=== PATIENT | male | born 1990 | race Caucasian/White ===

== ENCOUNTER 2022-01-05 11:09 | Emergency (ER) | payer SELFPAY ==
[~2022-01-05] VITALS: Ht 180.3 cm; Wt 82.0 kg
--- NOTE | 2022-01-05 11:23 | ED GU-Male ---
General Chief Complaint: - Reproductive Stated Complaint: PAIN/SWELLING IN TESTICLES History of Present Illness Date Seen by Provider: Jan 05, 2022 Time Seen by Provider: 11:23 Initial Comments Patient presents with significant pain and swelling in his testicles. Patient reports he awoke with it and is worsened throughout the morning. Patient states now making him nauseous and it goes up both sides of his groin. He cannot tell now is on the right or left.. Patient denies any trauma. (BETO TIMMONS DO) Allergies and Home Medications Allergies Coded Allergies: No Known Allergies (Verified Allergy, Unknown, 01/05/22) Patient Home Medication List Home Medication List Reviewed: Yes (BETO TIMMONS DO) Doxycycline Hyclate (Doxycycline Hyclate) 100 Mg Tablet, 100 MG PO BID Prescribed by: LAUREN ROB on 01/05/22 1418 Ketorolac Tromethamine (Ketorolac Tromethamine) 10 Mg Tablet, 10 MG PO Q6H PRN for PAIN-BREAKTHROUGH Prescribed by: LAUREN ROB on 01/05/22 1418 Ondansetron (Ondansetron Odt) 4 Mg Tab.rapdis, 4 MG PO Q6H PRN for NAUSEA/VOMITING Prescribed by: LAUREN ORB on 01/05/22 1418 Review of Systems Review of Systems Constitutional: see HPI; No chills, No fever EENTM: no symptoms reported Respiratory: no symptoms reported Cardiovascular: no symptoms reported Gastrointestinal: see HPI Genitourinary: see HPI Musculoskeletal: no symptoms reported Skin: no symptoms reported Psychiatric/Neurological: No Symptoms Reported Endocrine: No Symptoms Reported Hematologic/Lymphatic: No Symptoms Reported (BETO TIMMONS DO) Past Udorepp-Wpwvua-Ppbwsf Hx Patient Social History Tobacco Use?: No Smoking Status: Never a Smoker Smokeless Tobacco Frequency: Never a User Use of E-Cig and/or Vaping dev: No Use of E-Cig and/or Vaping Fernandez: Never a User Substance use?: No Alcohol Use?: No Pt feels they are or have been: No (BETO TIMMONS DO) Physical Exam Vital Signs Vital Signs - First Documented 01/05/22 01/05/22 11:15 11:35 Temp 36.9 Pulse 66 Resp 17 B/P (MAP) 117/76 (90) Pulse Ox 100 O2 Delivery Room Air (LAUREN ROB) Vital Signs Capillary Refill : (TIMMONS,BETO L DO) Height, Weight, BMI Height: '" Weight: lbs. oz. kg; BMI Method: General Appearance: moderate distress Cardiovascular: normal peripheral pulses, regular rate, rhythm Respiratory: lungs clear, normal breath sounds Male: testicular tenderness, other (Mild high riding right testicle with some m ild swelling) Extremities: normal range of motion Neurologic/Psychiatric: alert, normal mood/affect, oriented x 3 Skin: normal color, warm/dry (TIMMONS,BETO L DO) Progress/Results/Core Measures Suspected Sepsis SIRS Temperature: Pulse: Respiratory Rate: Blood Pressure / Mean: (TIMMONS,BETO L DO) Results/Orders Lab Results Laboratory Tests Test 01/05/22 12:40 Range/Units Urine Color ORANGE Urine Clarity SL CLOUDY Urine pH 6.0 5-9 Urine Specific [place] >=1.030 1.016-1.022 Urine Protein TRACE H NEGATIVE Urine Glucose (UA) NEGATIVE NEGATIVE Urine Ketones 2+ H NEGATIVE Urine Nitrite NEGATIVE NEGATIVE Urine Bilirubin 1+ H NEGATIVE Urine Urobilinogen 0.2 < = 1.0 MG/DL Urine Leukocyte Esterase NEGATIVE NEGATIVE Urine RBC (Auto) NEGATIVE NEGATIVE Urine RBC NONE /HPF Urine WBC NONE /HPF Urine Squamous Epithelial Cells NONE /HPF Urine Crystals PRESENT H /LPF Urine Amorphous Sediment LARGE JUAN MIGUEL URATES H /LPF Urine Bacteria NEGATIVE /HPF Urine Casts NONE /LPF Urine Mucus SMALL H /LPF Urine Culture Indicated NO (LAUREN ROB) My Orders Orders - LAUREN ROB Scrotum (Testicle) [id number] (01/05/22 12:43) Ua Culture If Indicated (01/05/22 13:24) Azithromycin Tablet (Zithromax Tablet) (01/05/22 14:00) Ceftriaxone (Rocephin) (01/05/22 14:00) Lidocaine 1% Inj 20 Ml (Xylocaine 1% Inj (01/05/22 14:00) Neis Cristofer Dna Urine Test (01/05/22 13:52) Chlamydia Trachomatis Urine (01/05/22 13:52) (LAUREN ROB) Medications Given in ED Current Medications Medications Dose Ordered Sig/Edilia Route Start Time Stop Time Status Last Admin Dose Admin Azithromycin 1,000 mg ONCE ONCE PO 01/05/22 14:00 01/05/22 14:01 DC 01/05/22 14:41 1,000 MG Ceftriaxone Sodium 1,000 mg ONCE ONCE IM 01/05/22 14:00 01/05/22 14:01 DC 01/05/22 14:41 1,000 MG Lidocaine HCl 2.1 ml ONCE ONCE INJ 01/05/22 14:00 01/05/22 14:01 DC 01/05/22 14:41 2.1 ML (LAUREN ROB) Vital Signs/I&O 01/05/22 01/05/22 01/05/22 01/05/22 11:15 11:35 12:34 15:00 Temp 36.9 Pulse 66 71 64 72 Resp 17 17 20 20 B/P (MAP) 117/76 (90) 124/73 (90) 130/72 (91) 124/76 Pulse Ox 100 99 99 O2 Delivery Room Air Room Air Room Air Room Air (LAUREN ROB) Vital Signs/I&O Capillary Refill : (BETO TIMMONS DO) Progress Note : Time: 11:32 Progress Note Patient symptoms concerning for testicular torsion. Patient needs an ultrasound which is unavailable at [facility] for [place]. You will be transferred to [facility] in [place] for ultrasound. Patient request to go by private vehicle. I will provide him Toradol for pain since he wants to drive himself. I discussed with him the need to go directly to the ER with nothing to eat or drink in route. Discussed with Dr. Rob who graciously accepted patient. Patient was stable upon transfer. (BETO TIMMONS DO) Progress Note #1: Time: 12:45 Progress Note Patient arrives by private conveyance from [facility] and ER to ER transfer by POV with chief complaint that at 330 this morning he was awoken with severe pain in his testicles left worse than right. Both feel like they are sending. He states they both hurt. Was a 10 out of 10 then he received some Toradol the time he got here he is is is now about 4 out of 10. Ultrasound was called in. Progress Note #2: Time: 13:40 Progress Note Patient to ultrasound. Progress Note #3: Time: 14:11 Progress Note Patient is feeling significantly better. Ready to go home. He is never had STDs and is in a monogamous relationship over the age of 30 so likely a typical anaerobic or gram negative urinary tract pathogen is suspected. We will give him a gram of Rocephin, a gram of azithromycin and put him on doxycycline for 10 days. Follow-up with urology as necessary (LAUREN ROB) Diagnostic Imaging Diagonstic Imaging: Ultrasound Plain Films/CT/US/NM/MRI: other (Scrotum) Comments [facility], [place] NAME: JOY VELEZ [facility] REC#: [id number] PT STATUS: REG ER : 1990 PHYSICIAN: LAUREN ROB MD ADMIT DATE: 01/05/22/ER Signed Date of Exam:01/05/22 US SCROTUM (Testicle) [id number] PROCEDURE: US Scrotum. TECHNIQUE: Multiple real-time grayscale images were obtained over the scrotum in various projections bilaterally. INDICATION: Scrotal pain. Testicular parenchyma appeared normal bilaterally. No evidence for testicular mass. Color Doppler blood flow to both testicles appeared normal. There is no hydrocele and there is no varicocele. No hernia identified. No convincing evidence for epididymal pathology. IMPRESSION: No findings of torsion or orchitis. No convincing evidence for epididymitis. No hernia, mass, hydrocele or varicocele. Dictated by: Dictated on workstation # [id number] Dict: 01/05/22 1401 Trans: 01/05/22 1457 [facility] [id number] Interpreted by: CARL PRITCHETT Electronically signed by: CARL PRITCHETT 01/05/22 1457 Reviewed: Reviewed by Me (LAUREN ROB) Departure Impression Primary Impression: Epididymitis, bilateral Disposition: 01 HOME, SELF-CARE Condition: Stable Departure-Patient Inst. Decision time for Depature: 14:12 (LAUREN ROB) Referrals: NO,LOCAL PHYSICIAN (PCP) Primary Care Physician BEATRIZ SERRANO MD Patient Instructions: Urinary Tract Infection, Adult (DC) Add. Discharge Instructions: You have an infection of the epididymis which lies just above the testes. Most of the time these are caused by common bacteria that cause urinary tract infections. We will cover you with doxycycline 1 capsule twice a day for the next 10 days in addition to the antibiotics we gave you today. If the culture comes back showing that we need to change antibiotics then we will call you and send a new prescription into the pharmacy. You can use Tylenol 1000 mg every 8 hours as necessary for pain. You can use heat for pain. Ketorolac 1 tablet 3 times a day for the next 3 days as necessary for breakthrough pain. Do not mix with ibuprofen naproxen Aleve or aspirin as these are the same family and you will not derive any additional benefit from mixing these medications. Ondansetron 1 tablet under the tongue every 6 hours as necessary for nausea or vomiting. Drink lots of fluids. Return to the ER for high fever, intractable nausea or vomiting, intractable pain. For help managing your symptoms or if your symptoms are not improving in 3 to [address] Serrano, urologist and request a follow-up appointment. All discharge instructions reviewed with patient and/or family. Voiced understanding. Scripts Ketorolac Tromethamine (Ketorolac Tromethamine) 10 Mg Tablet 10 MG PO Q6H PRN for PAIN-BREAKTHROUGH for 3 Days, #12 TAB 0 Refills Maximum dose 40 mg in 24 hours. Prov: LAUREN ROB 01/05/22 Ondansetron (Ondansetron Odt) 4 Mg Tab.rapdis 4 MG PO Q6H PRN for NAUSEA/VOMITING, #8 TAB 0 Refills Prov: LAUREN ROB 01/05/22 Doxycycline Hyclate (Doxycycline Hyclate) 100 Mg Tablet 100 MG PO BID for 10 Days, #20 TAB 0 Refills Prov: LAUREN ROB 01/05/22 Copy Copies To 1: BEATRIZ SERRANO MD, TREVOR L DO Jan 05, 2022 11:23 LAUREN RBO Jan 05, 2022 11:36
[2022-01-05] MEDS ORDERED: KETOROLAC 30 MG/ML VIAL IM STA (11:26)
[2022-01-05 13:29] LABS: CLARITY,URINE SL CLOUDY; COLOR,URINE ORANGE; GLUCOSE, URINE (UA) NEGATIVE (NEGATIVE); KETONES,URINE 2+ (NEGATIVE); LEUKOCYTE ESTERASE ,URINE NEGATIVE (NEGATIVE); NITRITE,URINE NEGATIVE (NEGATIVE); PROTEIN,URINE TRACE (NEGATIVE)
[2022-01-05 13:37] LABS: AMORPHOUS SEDIMENT,UR LARGE AMOR URATES /LPF; BACTERIA,URINE NEGATIVE /HPF
[2022-01-05 13:38] LABS: BILIRUBIN,URINE 1+ (NEGATIVE)
[2022-01-05] MEDS ORDERED: LIDOCAINE 1% INJ 20 ML VIAL INJ ONE (14:00)
[2022-01-05] MEDS ORDERED: AZITHROMYCIN 250 MG TAB (ZITHROMAX) PO ONE (14:00)
[2022-01-05] MEDS ORDERED: cefTRIAXone 1,000 MG VIAL IM ONE (14:00)
[2022-01-05] MEDS ORDERED: DOXY100T2 PO (14:18)
[2022-01-05] MEDS ORDERED: ONDA4TAB11 PO (14:18)
[2022-01-05] MEDS ORDERED: KETO10TA PO (14:18)
--- NOTE | 2022-01-05 14:28 | Diagnostic Imaging Report ---
PROCEDURE: US Scrotum. TECHNIQUE: Multiple real-time grayscale images were obtained over the scrotum in various projections bilaterally. INDICATION: Scrotal pain. Testicular parenchyma appeared normal bilaterally. No evidence for testicular mass. Color Doppler blood flow to both testicles appeared normal. There is no hydrocele and there is no varicocele. No hernia identified. No convincing evidence for epididymal pathology. IMPRESSION: No findings of torsion or orchitis. No convincing evidence for epididymitis. No hernia, mass, hydrocele or varicocele. Dictated by: Dictated on workstation # [id number]
[2022-01-05 15:00] VITALS: BP 124/76
== END 2022-01-05 15:01 | disposition home or self-care (01) ==
LOC: EDUNIT# 11:09 → ER 11:11
DX: N45.1 Epididymitis (principal)
CPT/HCPCS: 36415; 76870; 81000; 87491; 87591

== ENCOUNTER → 2022-01-10 | Outpatient (CLI) | payer SELFPAY ==
[~2022-01-10] MED LIST: DOXY100T2 PO; HOLD METFORMIN - RECEIVED CONTRAST 20 ML VIAL IV SCH; IOHEXOL 350 MG/ML 100 ML (OMNIPAQUE 350) VIAL IV ONE; KETO10TA PO; NS 100 ML (IVPB) BAG IV ONE; ONDA4TAB11 PO; SUCR1TAB PO
[2022-01-10 14:18] LABS: BASOPHILS % (AUTO) 0 % (0-10); EOSINOPHILS # (AUTO) 0.1 10^3/uL (0.0-0.3); EOSINOPHILS % (AUTO) 1 % (0-10); HEMATOCRIT 46 % (40-54); HEMOGLOBIN 15.9 g/dL (13.3-17.7); LYMPHOCYTES % (AUTO) 31 % (12-44); MEAN CORPUSCULAR HEMOGLOBIN 28 pg (25-34); MEAN CORPUSCULAR HGB CONC 34 g/dL (32-36); MEAN CORPUSCULAR VOLUME 82 fL (80-99); MEAN PLATELET VOLUME 9.2 fL (9.0-12.2); MONOCYTES # (AUTO) 0.8 10^3/uL (0.0-1.0); MONOCYTES % (AUTO) 12 % (0-12); NEUTROPHILS # (AUTO) 3.5 10^3/uL (1.8-7.8); NEUTROPHILS % (AUTO) 56 % (42-75); PLATELET COUNT 289 10^3/uL (130-400); WHITE BLOOD COUNT 6.3 10^3/uL (4.3-11.0)
--- NOTE | 2022-01-10 14:48 | Diagnostic Imaging Report ---
PROCEDURE: CT abdomen and pelvis with contrast. TECHNIQUE: Multiple contiguous axial images were obtained through the abdomen and pelvis after administration of intravenous contrast. Auto Exposure Controls were utilized during the CT exam to meet ALARA standards for radiation dose reduction. All CT scans use one or more of the following dose optimizing techniques: automated exposure control, MA and/or KvP adjustment based on patient size and exam type or iterative reconstruction. INDICATION: Scrotal pain and abdominal pain, symptoms of five days' duration. COMPARISON: No priors. FINDINGS: The appendix is well visualized, air containing, nondilated, and normal. There are no radiopaque urinary tract calculi. There is no hydroureteronephrosis. The aortoiliac and mesenteric vessels are patent and nonaneurysmal. There is no small or large bowel obstruction. No bowel wall thickening. No perienteric or pericolonic edema. Liver, gallbladder, bile ducts, spleen, adrenals, and pancreas are all unremarkable. No ascites, abscess, hematoma, or fluid collection. No pneumatosis or free gas. No abdominal wall defect or hernia. No soft tissue gas. No acute bony pathology. The lung bases are clear. IMPRESSION: Unremarkable abdominopelvic CT. Dictated by: Dictated on workstation # [id number]
[2022-01-10 14:49] LABS: ALBUMIN 4.1 GM/DL (3.2-4.5); BILIRUBIN,TOTAL 0.9 MG/DL (0.1-1.0); CALCIUM 9.2 MG/DL (8.5-10.1); CREATININE SERUM 0.9 MG/DL (0.60-1.30); POTASSIUM 3.8 MMOL/L (3.6-5.0); TOTAL PROTEIN 7.4 GM/DL (6.4-8.2)
== END ==
LOC: RAD 14:00
PROVIDERS: ATTEND Physician Assistant
DX: R10.84 Generalized abdominal pain (principal); N50.819 Testicular pain, unspecified; R11.0 Nausea
CPT/HCPCS: 36415; 74177; 80053; 82150; 83690; 85025

== ENCOUNTER 2022-01-12 12:44 | Emergency (ER) | payer SELFPAY ==
[~2022-01-12] VITALS: Ht 180.3 cm; Wt 84.0 kg
[~2022-01-12 12:44] MED LIST changes: -HOLD METFORMIN - RECEIVED CONTRAST 20 ML VIAL IV SCH; -IOHEXOL 350 MG/ML 100 ML (OMNIPAQUE 350) VIAL IV ONE; -NS 100 ML (IVPB) BAG IV ONE; -SUCR1TAB PO
[2022-01-12] MEDS ORDERED: LACTATED RINGERS 1,000 ML IV ONE (13:15)
[2022-01-12 13:17] LABS: BASOPHILS % (AUTO) 0 % (0-10); EOSINOPHILS # (AUTO) 0.1 10^3/uL (0.0-0.3); EOSINOPHILS % (AUTO) 2 % (0-10); HEMATOCRIT 47 % (40-54); HEMOGLOBIN 16.6 g/dL (13.3-17.7); LYMPHOCYTES # (AUTO) 2.1 10^3/uL (1.0-4.0); LYMPHOCYTES % (AUTO) 26 % (12-44); MEAN CORPUSCULAR HEMOGLOBIN 28 pg (25-34); MEAN CORPUSCULAR HGB CONC 35 g/dL (32-36); MEAN CORPUSCULAR VOLUME 81 fL (80-99); MEAN PLATELET VOLUME 9.5 fL (9.0-12.2); MONOCYTES # (AUTO) 0.6 10^3/uL (0.0-1.0); MONOCYTES % (AUTO) 8 % (0-12); NEUTROPHILS # (AUTO) 5.2 10^3/uL (1.8-7.8); NEUTROPHILS % (AUTO) 64 % (42-75); PLATELET COUNT 288 10^3/uL (130-400); WHITE BLOOD COUNT 8.1 10^3/uL (4.3-11.0)
[2022-01-12 13:27] LABS: ALBUMIN 4.5 GM/DL (3.2-4.5)
[2022-01-12 13:28] LABS: POTASSIUM 4.1 MMOL/L (3.6-5.0)
[2022-01-12 13:29] LABS: CALCIUM 9.5 MG/DL (8.5-10.1)
[2022-01-12 13:30] LABS: TOTAL PROTEIN 7.9 GM/DL (6.4-8.2)
[2022-01-12 13:32] LABS: BILIRUBIN,TOTAL 0.9 MG/DL (0.1-1.0)
[2022-01-12 13:34] LABS: CREATININE SERUM 0.88 MG/DL (0.60-1.30)
[2022-01-12] MEDS ORDERED: FAMOTIDINE 20MG/2ML IV (PEPCID) IV STA (13:36)
[2022-01-12] MEDS ORDERED: PANTOPRAZOLE 40 MG (PROTONIX) VIAL IV ONE (13:45)
[2022-01-12] MEDS ORDERED: SUCRALFATE 1 GM (CARAFATE) TAB PO ONE (13:45)
--- NOTE | 2022-01-12 13:45 | ED Abdominal Pain ---
General Chief Complaint: Abdominal/GI Problems Stated Complaint: ABD PAIN Nursing Triage Note: PT AMB TO RM 5 W C/O UPPER MEDIAL ABD PAIN SX FRIDAY. PAIN WORSE W LYING DOWN. PT A&OX4. Source of Information: Patient Exam Limitations: No Limitations (DEB [employer] STUDENT) History of Present Illness Date Seen by Provider: Jan 12, 2022 Time Seen by Provider: 13:00 Initial Comments Mr Mmcahon is a 31 yo male that presents to ER due to epigastric abdominal pain. Was sent to ER by urgent care due to a lipase that was in the 500's. He was seen in the ER a week ago with testicular pain. He was worked up with ultrasound and was found to be negative for torsion. Since then his testicular pain has gotten progressively better but the pain in his abdomen has been getting progressively worse. States the pain really began about 4-5 days ago in the epigastric area. Pain is described as about a 5, and crampy. Pain is worse at night especially with laying down. Eating and changing postions does help with the pain a bit. He has had some baseline nausea for the past week. He was also vomiting a couple times a day, because he states that it helps with the discomfort. He also has some generalized back pain that is worse in the lateral lumbar area. Denies CVA tenderness. He has not had pain like this before. Denies any history of kidney stones or galbladder problems. He does not take any medications. Does not smoke, drink alcohol, or use drugs. He is self employed. (DEB [employer] STUDENT) Timing/Duration: 1 Week, Changing Over Time Severity/Quality: Moderate, Aching, Full Location: Epigastric Radiation: Back Modifying Factors: Improves With Eating; Worsens With Lying down Associated Symptoms: No Chest Pain, No Fever/Chills; Heartburn, Nausea/Vomiting; No Shortness of Air, No Swelling/Mass in Abdomen, No Weakness (ALFREDO TREADWELL MD) Allergies and Home Medications Allergies Coded Allergies: No Known Allergies (Verified Allergy, Unknown, 01/05/22) Patient Home Medication List Home Medication List Reviewed: Yes (ALFREDO TREADWELL MD) Doxycycline Hyclate (Doxycycline Hyclate) 100 Mg Tablet, 100 MG PO BID Prescribed by: LAUREN WELLS on 01/05/22 1418 Ketorolac Tromethamine (Ketorolac Tromethamine) 10 Mg Tablet, 10 MG PO Q6H PRN for PAIN-BREAKTHROUGH Prescribed by: LAUREN WELLS on 01/05/22 1418 Ondansetron (Ondansetron Odt) 4 Mg Tab.rapdis, 4 MG PO Q6H PRN for NAUSEA/VOMITING Prescribed by: LAUREN WELLS on 01/05/22 1418 Review of Systems Review of Systems Constitutional: No chills, No fever EENTM: No Blurred Vision Respiratory: Denies Cough, Denies Shortness of Air Cardiovascular: Denies Chest Pain, Denies Edema Gastrointestinal: Abdominal Pain (Epigastric); Denies Constipated, Denies Diarrhea; Nausea, Poor Appetite; Denies Rectal Bleeding; Vomiting Genitourinary: Denies Burning, Denies Frequency Musculoskeletal: No joint pain Skin: No rash Psychiatric/Neurological: Denies Headache (DEB [employer] STUDENT) All Other Systems Reviewed Negative Unless Noted: Yes (ALFREDO TREADWELL MD) Past Ukpriem-Wcoqyn-Jrslwx Hx Patient Social History Tobacco Use?: No Use of E-Cig and/or Vaping dev: No Substance use?: No Alcohol Use?: No (DEB [employer] STUDENT) Tobacco Use?: No Use of E-Cig and/or Vaping dev: No Substance use?: No Alcohol Use?: No (ALFREDO TREADWELL MD) Immunizations Up To Date Influenza Vaccine Up-to-Date: No; Not Current First/Initial COVID19 Vaccinat: NONE Second COVID19 Vaccination [place]: NONE Third COVID19 Vaccination Date: NONE COVID19 Vaccine Energy Conservation Specialist: NONE (DEB [employer] STUDENT) Past Medical History Surgeries: Yes Orthopedic, Tonsillectomy (ALFREDO TREADWELL MD) Family Medical History Reviewed Nursing Family Hx (ALFREDO TREADWELL MD) GI Disease (ALFREDO TREADWELL MD) Physical Exam Vital Signs Vital Signs - First Documented 01/12/22 12:57 Temp 36.0 Pulse 57 Resp 20 B/P (MAP) 142/94 (110) Pulse Ox 98 O2 Delivery Room Air (ALFREDO TREADWELL MD) Vital Signs Capillary Refill : Less Than 3 Seconds (DEB [employer] MED STUDENT) Height/Weight/BMI Height: '" Weight: lbs. oz. kg; 25.00 BMI Method: General Appearance: WD/WN, other (uncomfortable) HEENT: PERRL/EOMI, pharynx normal Neck: supple Respiratory: chest non-tender, lungs clear, normal breath sounds, no respiratory distress, no accessory muscle use Cardiovascular: regular rate, rhythm, no edema, no murmur Peripheral Pulses: 2+ Radial Pulses (R), 2+ Radial Pulses (L) Gastrointestinal: normal bowel sounds, soft; No guarding; tenderness (Epigastric, also has a moderate amount of tenderness on LUQ and mild tenderness on RUQ) Rectal: deferred Extremities: no pedal edema, no calf tenderness Back: no CVA tenderness, other (Has some discomfort in the lateral lumbar region bilat) Neurologic/Psychiatric: alert, normal mood/affect, oriented x 3 Skin: normal color, warm/dry (DEB [employer] STUDENT) General Appearance: other (uncomfortable) HEENT: PERRL/EOMI, pharynx normal Neck: supple; No lymphadenopathy (R), No lymphadenopathy (L) Respiratory: lungs clear, normal breath sounds, no respiratory distress, no accessory muscle use Cardiovascular: regular rate, rhythm, no edema Gastrointestinal: soft, tenderness (Epigastric, also has a moderate amount of tenderness on LUQ and mild tenderness on RUQ) Back: no CVA tenderness, no vertebral tenderness Neurologic/Psychiatric: alert, normal mood/affect Skin: normal color, warm/dry (ALFREDO TREADWELL MD) Progress/Results/Core Measures Results/Orders Lab Results Laboratory Tests Test 01/12/22 13:08 Range/Units White Blood Count 8.1 4.3-11.0 10^3/uL Red Blood Count 5.84 H 4.30-5.52 10^6/uL Hemoglobin 16.6 13.3-17.7 g/dL Hematocrit 47 40-54 % Mean Corpuscular Volume 81 80-99 fL Mean Corpuscular Hemoglobin 28 25-34 pg Mean Corpuscular Hemoglobin Concent 35 32-36 g/dL Red Cell Distribution Width 11.9 10.0-14.5 % Platelet Count 288 130-400 10^3/uL Mean Platelet Volume 9.5 9.0-12.2 fL Immature Granulocyte % (Auto) 0 % Neutrophils (%) (Auto) 64 42-75 % Lymphocytes (%) (Auto) 26 12-44 % Monocytes (%) (Auto) 8 0-12 % Eosinophils (%) (Auto) 2 0-10 % Basophils (%) (Auto) 0 0-10 % Neutrophils # (Auto) 5.2 1.8-7.8 10^3/uL Lymphocytes # (Auto) 2.1 1.0-4.0 10^3/uL Monocytes # (Auto) 0.6 0.0-1.0 10^3/uL Eosinophils # (Auto) 0.1 0.0-0.3 10^3/uL Basophils # (Auto) 0.0 0.0-0.1 10^3/uL Immature Granulocyte # (Auto) 0.0 0.0-0.1 10^3/uL Sodium Level 137 135-145 MMOL/L Potassium Level 4.1 3.6-5.0 MMOL/L Chloride Level 103 98-107 MMOL/L Carbon Dioxide Level 24 21-32 MMOL/L Anion Gap 10 5-14 MMOL/L Blood Urea Nitrogen 13 7-18 MG/DL Creatinine 0.88 0.60-1.30 MG/DL Estimat Glomerular Filtration Rate 117 BUN/Creatinine Ratio 15 Glucose Level 104 70-105 MG/DL Calcium Level 9.5 8.5-10.1 MG/DL Corrected Calcium 9.1 8.5-10.1 MG/DL Total Bilirubin 0.9 0.1-1.0 MG/DL Aspartate Amino Transf (AST/SGOT) 28 5-34 U/L Alanine Aminotransferase (ALT/SGPT) 32 0-55 U/L Alkaline Phosphatase 67 40-136 U/L C-Reactive Protein High Sensitivity 0.28 0.00-0.50 MG/DL Total Protein 7.9 6.4-8.2 GM/DL Albumin 4.5 3.2-4.5 GM/DL Amylase Level 73 25-125 U/L Lipase 19 8-78 U/L (ALFREDO TREADWELL MD) My Orders Orders - ALFREDO TREADWELL MD Amylase (01/12/22 13:10) Cbc With Automated Diff (01/12/22 13:10) Comprehensive Metabolic Panel (01/12/22 13:10) Lipase (01/12/22 13:10) Ed Iv/Invasive Line Start (01/12/22 13:10) Lactated Ringers (Lr 1000 Ml Iv Solution (01/12/22 13:15) Hs C Reactive Protein (01/12/22 13:10) Famotidine Injection (Pepcid Injection) (01/12/22 13:36) Pantoprazole Injection (Protonix Injecti (01/12/22 13:45) Sucralfate Tablet (Carafate Tablet) (01/12/22 13:45) (ALFREDO TREADWELL MD) Medications Given in ED Current Medications Medications Dose Ordered Sig/Edilia Route Start Time Stop Time Status Last Admin Dose Admin Lactated Ringer's 1,000 ml @ 0 mls/hr Q0M ONCE IV 01/12/22 13:15 01/12/22 13:16 DC 01/12/22 13:18 0 MLS/HR Pantoprazole 40 mg ONCE ONCE IV 01/12/22 13:45 01/12/22 13:46 DC 01/12/22 14:04 40 MG Sucralfate 1 gm ONCE ONCE PO 01/12/22 13:45 01/12/22 13:46 DC 01/12/22 14:04 1 GM (ALFREDO TREADWELL MD) Vital Signs/I&O 01/12/22 12:57 Temp 36.0 Pulse 57 Resp 20 B/P (MAP) 142/94 (110) Pulse Ox 98 O2 Delivery Room Air (ALFREDO TREADWELL MD) Blood Pressure Mean: 110 Progress Progress Note : Time: 13:00 Progress Note Spoke with patient regarding current symptoms. He had an ultrasound and CT scan done recently. Both where benign and did not show any testicular or abdominal abnormalities. Pt states that he does drink a lot of soda, does have a stressful job being self employed, and doesn't have the best diet. Discussed with patient that due to the recent vomiting, this probably explains his elevated lipase especially since CT was negative. Due to the location of his pain and symptoms, discussed that this could likely be due to gastric ulcers. Will give some IV PPI and H2 ninoska as well as some cerafate. Also started IV fluids. Advised patient that this would not take away pain completely but could help take the edge off. Will also get some basic labs, CBC, CMP, amylase, lipase just to assess for any other possible source of the pain. Pt agrees and does not have any concerns or questions at this time. 1356, CBC, CMP resulted as well as amylase and lipase, all labs within normal range at this point. (DEB [employer] STUDENT) Progress Note : Progress Note I have seen and evaluated the patient and agree with above except as indicated. I have directed the plan of care. I have personally performed history and physical exam. Patient is here with epigastric and left upper quadrant abdominal pain. Sent here from [facility] urgent care were he has been evaluated. He did have ultrasound last week of the testicles which was negativ e. 2 days ago, have CT abdomen and pelvis which did not show any significant abnormalities. Apparently labs were drawn yesterday and lipase was elevated at just over 500 and they wanted him evaluated here. Patient states that he still suffers from fullness feeling in epigastric and left upper quadrant area that radiates to the back and upwards especially when lying down. Is a little better after eating. Has had a few episodes of vomiting. Denies bloody or black stools. Denies dysuria or hematuria. Denies blood in his vomit. Does state he suffers from significant reflux or acid disease and there is some family history of the same. He does not smoke. Noted that onset of symptoms was during particularly stressful time due to high-volume work a week ago. Physical exam as above. We will check basic labs and recheck lipase as well as give 1 L of normal saline, 20 mg of Pepcid IV, 40 mg of Protonix IV and Carafate 1 g p.o. We will monitor for improvement. Monitor patient. 1519: Overall about the same to slightly better. Declined pain medicine. Labs are normal overall and compared to previous done 2 days ago. Lipase was slightly elevated at that time. I did discuss the case with Dr. Carey and he is happy to see him Friday afternoon. He agrees with outpatient Carafate, omeprazole and famotidine. I did discuss return precautions with patient and family. Discharged home with return precautions. Patient and family verbalized understanding of instructions and agreement with plan. (ALFREDO TREADWELL MD) Departure Impression Primary Impression: Epigastric abdominal pain Disposition: HOME, SELF-CARE Condition: Stable Departure-Patient Inst. Decision time for Depature: 15:20 (ALFREDO TREADWELL MD) Referrals: RAMÓN CAREY DO NO,LOCAL PHYSICIAN (PCP) Primary Care Physician Patient Instructions: Severe Abdominal Pain, Adult (DC), Acid Reflux and Gastroesophageal Reflux Disease in Adults Add. Discharge Instructions: All discharge instructions reviewed with patient and/or family. Voiced understanding. You should machine pecan picker 6-week pack of omeprazole and take daily for the next 6 weeks. You should also initiate [id number] Pepcid or the generic fam otidine, 20 mg twice daily for 7 days and then daily thereafter as needed to reduce acid. Take other medications as directed. Call Dr. Carey's office on Friday for likely appointment Friday. Let the hospital receptionist know that the case was discussed with Dr. Carey and he would like to see you Friday. He is fitting you in a schedule and this may increase your time in his office. Return for worse pain, vomiting, blood in your vomit or stool, weakness, breathing problems or other concerns as needed. You should avoid spicy, acidic or acid producing foods over the next week or 2 and then you may use as tolerated. Consider using only Tylenol/acetaminophen for pain right now to minimize stomach upset. Scripts Sucralfate (Sucralfate) 1 Gm Tablet 1 GM PO ACHS, #56 TAB 1 Refill Chew tablet to a slurry and then swallow Prov: ALFREDO TREADWELL MD 01/12/22 Copy Copies To 1: RAMÓN CAREY DEREK MED STUDENT Jan 12, 2022 13:45 ALFREDO TREADWELL MD Jan 12, 2022 14:09
[2022-01-12] MEDS ORDERED: SUCR1TAB PO (15:24)
[2022-01-12 15:47] VITALS: BP 129/83
== END 2022-01-12 15:47 | disposition home or self-care (01) ==
LOC: EDUNIT# 12:44 → ER 12:46
DX: R10.13 Epigastric pain (principal); R10.11 Right upper quadrant pain; R10.12 Left upper quadrant pain; R74.8 Abnormal levels of other serum enzymes; K21.9 Gastro-esophageal reflux disease without esophagitis
CPT/HCPCS: 36415; 80053; 82150; 83690; 85025; 86141